=== PATIENT | female | born 1950 | race Caucasian/White ===

== ENCOUNTER 2019-02-09 11:01 | Inpatient (IN) | payer MEDICARE, OTHER ==
[~2019-02-09] VITALS: Ht 170.2 cm; Wt 85.3 kg
[2019-02-09 12:00] LABS: BASOPHILS # (AUTO) 0.1 (0.0-0.1); BASOPHILS % 0.4 % (0.0-1.0); EOSINOPHILS % 0.3 % (0.0-6.0); HEMATOCRIT 43.2 % (34.2-44.1); HEMOGLOBIN 15.2 g/dL (12.0-16.0); LYMPHOCYTES # (AUTO) 2.1 (1.0-3.2); LYMPHOCYTES % 15.3 % (18.0-39.1); MEAN CORPUSCULAR HGB CONC 35.2 g/dL (31-35); MEAN CORPUSCULAR VOLUME 85.2 fL (81-99); MONOCYTES # (AUTO) 0.6 (0.2-0.8); MONOCYTES % 4.4 % (4.4-11.3); NEUTROPHILS # (AUTO) 10.8 (2.1-6.9); NEUTROPHILS % 78.7 % (38.7-80.0); PLATELET COUNT 386 x10e3/uL (140-360); RED BLOOD COUNT 5.07 x10e6/uL (3.6-5.1); RED CELL DISTRIBUTION WIDTH 13.4 % (11.7-14.4)
[2019-02-09 12:01] LABS: ALBUMIN 3.9 g/dL (3.5-5.0); ALBUMIN/GLOBULIN RATIO 0.8 (0.8-2.0); ANION GAP 22.5 mmol/L (8-16); CALCIUM 9.8 mg/dL (8.4-10.2); CREATININE, SERUM 5.08 mg/dL (0.57-1.11); POTASSIUM 4.5 mmol/L (3.5-5.1)
[2019-02-09 12:13] LABS: CLARITY,URINE CLOUDY (CLEAR); COLOR,URINE YELLOW (YELLOW)
[2019-02-09 12:14] LABS: BILIRUBIN,URINE 1+ (NEGATIVE); KETONES,URINE TRACE (NEGATIVE); LEUKOCYTE ESTERASE ,URINE TRACE (NEGATIVE); NITRITE,URINE NEGATIVE (NEGATIVE); PROTEIN,URINE DIPSTICK 1+ (NEGATIVE); URINE UROBILINOGEN 0.2 mg/dL (0.2 - 1)
[2019-02-09 12:28] LABS: BACTERIA,URINE FEW /HPF; RBC,URINE 0-5 /HPF (0-5)
--- NOTE | 2019-02-09 12:59 | Diagnostic Imaging Report ---
EXAM: CT Abdomen and Pelvis WITHOUT contrast INDICATION: Right flank pain, query renal stone. COMPARISON: None. TECHNIQUE: Abdomen and pelvis were scanned utilizing a multidetector helical scanner from the lung base to the pubic symphysis without administration of IV contrast. Absence of intravenous contrast decreases sensitivity for detection of focal lesions and vascular pathology. Coronal and sagittal reformations were obtained. Stone protocol is performed. RADIATION DOSE: Total DLP: 762.3 mGy*cm Estimated effective dose: (DLP x 0.015 x size factor) mSv Dose modulation, iterative reconstruction, and/or weight based adjustment of the mA/kV was utilized to reduce the radiation dose to as low as reasonably achievable. FINDINGS: LINES and TUBES: None. LOWER THORAX: Coronary atherosclerosis. Patchy dependent atelectasis. HEPATOBILIARY: No evidence of mass. Calcified hepatic granuloma at the dome. No biliary ductal dilation. GALLBLADDER: Cholelithiasis without CT evidence of cholecystitis. SPLEEN: No splenomegaly. PANCREAS: Atrophic. No evidence of focal masses or ductal dilatation. ADRENALS: Bilateral adrenal glands appears thickened, consistent with hypertrophy without evidence of discrete nodule. KIDNEYS/URETERS: No hydronephrosis. No cystic or solid mass lesions. No stones. Nonspecific mild bilateral perinephric stranding. GI TRACT: No abnormal distention, wall thickening, or evidence of bowel obstruction. Appendix is normal. PELVIC ORGANS/BLADDER: Bladder is decompressed. LYMPH NODES: No lymphadenopathy. VESSELS: There is moderate atherosclerotic disease in the aorta and major arterial branches. PERITONEUM / RETROPERITONEUM: No free air or fluid. BONES: There is a hemangioma of the L1 vertebral body. There is mild age indeterminate loss of vertebral body height at L1. There is diffuse osteopenia. SOFT TISSUES: Unremarkable. IMPRESSION: No evidence of renal stone. Cholelithiasis without CT evidence of cholecystitis. Mild age indeterminate loss of vertebral body height at L1. Signed by: Dr. Rodger Cardoza MD on 02/09/2019 12:56 PM
--- NOTE | 2019-02-09 13:04 | Diagnostic Imaging Report ---
Examination: Single AP view of the chest. COMPARISON: Same day CT abdomen/pelvis 02/09/2019. Report from chest radiograph 01/27/2014, although the images are not available for review at the time of this dictation. INDICATION: Decreased breath sounds right lower chest. DISCUSSION: The lungs are moderately expanded. There is an asymmetric opacity projecting over the medial aspect of the right lung apex. No evidence of pneumonia or pulmonary edema. The cardiomediastinal silhouette is unremarkable. No acute osseous abnormalities. Posttraumatic deformity of the proximal right humerus is partially seen. There are surgical clips which project over the left lateral hemithorax and axilla. IMPRESSION: No acute radiographic abnormality. Right apical asymmetric opacity likely represents superimposition of the medial clavicle and first anterior costochondral junction. While the images are not available for review, the report from 01/27/2014 also noted opacity at this location. Suggest upright PA and lateral chest radiographs for further evaluation. Signed by: Dr. Rodger Cardoza MD on 02/09/2019 1:01 PM
[2019-02-09] MEDS ORDERED: DEXTROSE 50% SYRINGE 50 ML IV PRN (15:15)
--- OUTSIDE RECORDS SUMMARY | 2019-02-09 15:18 | XMS REPORT ---
[facility] Address Unknown Phone Unavailable Care Team Providers Care [employer] Name Role Phone MANGO Michael BARON Unavailable Unavailable Problems This patient has no known problems. Allergies, Adverse Reactions, Alerts This patient has no known allergies or adverse reactions. Medications This patient has no known medications. Results Test Description Test Time Test Comments Text Results Atomic Results Result Comments CHEST SINGLE (PORTABLE) 2019-02-09 12:56:00 [place] [address] Patient Name: MICKI TODD MR #: [id number] : 1950 Age/Sex: 68/F Req #: [id number] Adm Physician: Ordered by: LENORA MATHEWS MAT MAN Report #: [id number] Location: ER Room/Bed: Procedure: [id number] DX/CHEST SINGLE (PORTABLE) Exam Date: 02/09/19 Exam Time: 1210 REPORT STATUS: Signed Examination: Single AP view of the chest. COM PARISON: Same day CT abdomen/pelvis 02/09/2019. Report from chest radiograph 01/27/2014, although the images are not available for review at the time of this dictation. INDICATION: Decreased breath sounds right lower chest. DISCUSSION: The lungs are moderately expanded. There is an asymmetric opacity projecting over the medial aspect of the right lung apex. No evidence of pneumonia or pulmonary edema. The cardiomediastinal silhouette is unremarkable. No acute osseous abnormalities. Posttraumatic deformity of the proximal right humerus is partially seen. There are surgical clips which project over the left lateral hemithorax and axilla. IMPRESSION: No acute radiographic abnormality. Right apical asymmetric opacity likely represents superimposition of the medial clavicle and first anterior costochondral junction. While the images are not available for review, the report from 01/27/2014 also noted opacity at this location. Suggest upright PA and lateral chest radiographs for further evaluation. Signed by: Dr. Jean Cardoza MD on 02/09/2019 1:01 PM Dictated By: JEAN CARDOZA MD 1301 Transcribed By: SILVIO on 02/09/19 1301 COPY TO: LENOAR MATHEWS MAT MAN CT ABDOMEN/PELVIS WO 2019-02-09 12:46:00 [place] [address] Patient Name: MICKI TODD MR #: [id number] : 1950 Age/Sex: 68/F Req #: [id number] Adm Physician: Ordered by: LENORA MATHEWS MAT MAN Report #: [id number] Location: ER Room/Bed: Procedure: [id number] CT/CT ABDOMEN/PELVIS WO Exam Date: 02/09/19 Exam Time: 1200 REPORT STATUS: Signed EXAM: CT Abdomen and Pelvis WITHOUT contrast I NDICATION: Right flank pain, query renal stone. COMPARISON: None. TECHNIQUE: Abdomen and pelvis were scanned utilizing a multidetector helical scanner from the lung base to the pubic symphysis without administration of IV contrast. Absence of intravenous contrast decreases sensitivity for detection of focal lesions and vascular pathology. Coronal and sagittal reformations were obtained. Stone protocol is performed. RADIATION DOSE: Total DLP: 762.3 mGy*cm Estimated effective dose: (DLP x 0.015 x size factor) mSv Dose modulation, iterative reconstruction, and/or weight based adjustment of the mA/kV was utilized to reduce the radiation dose to as low as reasonably achievable. FINDINGS: LINES and TUBES: None. LOWER THORAX: Coronary atherosclerosis. Patchy dependent atelectasis. HEPATOBILIARY: No evidence of mass. Calcified hepatic granuloma at the dome. No biliary ductal dilation. GALLBLADDER: Cholelithiasis without CT evidence of cholecystitis. SPLEEN: No splenomegaly. PANCREAS: Atrophic. No evidence of focal masses or ductal dilatation. ADRENALS: Bilateral adrenal glands appears thickened, consistent with hypertrophy without evidence of discrete nodule. KIDNEYS/URETERS: No hydronephrosis. No cystic or solid mass lesions. No stones. Nonspecific mild bilateral perinephric stranding. GI TRACT: No abnormal distention, wall thickening, or evidence of bowel obstruction. Appendix is normal. PELVIC ORGANS/BLADDER: Bladder is decompressed. LYMPH NODES: No lymphadenopathy. VESSELS: There is moderate atherosclerotic disease in the aorta and major arterial branches. PERITONEUM / RETROPERITONEUM: No free air or fluid. BONES: There is a hemangioma of the L1 vertebral body. There is mild age indeterminate loss of vertebral body height at L1. There is diffuse osteopenia. SOFT TISSUES: Unremarkable. IMPRESSION: No evidence of renal stone. Cholelithiasis without CT evidence of cholecystitis. Mild age indeterminate loss of vertebral body height at L1. Signed by: Dr. Jean Cardoza MD on 02/09/2019 12:56 PM Dictated By: JEAN CARDOZA MD 1258 Transcribed By: SILVIO on 02/09/19 1251 COPY TO: LENORA MATHEWS NP
[2019-02-09 16:05] VITALS: BP 120/67
[2019-02-09] MEDS: INSULIN REGULAR, HUMAN 100 UNIT/1 ML 3ML VIAL SQ SCH ×2 (16:30→21:12)
--- NOTE | 2019-02-09 16:42 | NUR ---
Recvd patient from ER in stretcher, AAOx2, Assisted her to bed, call light in reach, patient confused intermittently, awaiting to get more informations. Denies any pain, Not in any distress, bed alarm ON, Bed in lowest position, call light in reach
[2019-02-09 17:13] VITALS: BP 120/67
--- NOTE | 2019-02-09 19:00 | NUR ---
received report from day nurse. patient is resting comfortably in bed. bed is in lowest position and call flanagan is within reach.
[2019-02-09 20:00] VITALS: BP 119/61
[2019-02-09 20:27] VITALS: BP 119/61
[2019-02-09] MEDS: SODIUM CHLORIDE 0.9% 1000ML 1,000 ML IV SCH (20:55)
[2019-02-10] VITALS (8 sets, daily range): BP systolic 102–156; BP diastolic 56–79
[2019-02-10] MEDS ORDERED: SONATA PO (02:53)
[2019-02-10] MEDS ORDERED: NAMENDA10 MG PO (02:53)
[2019-02-10] MEDS ORDERED: ALPRAZOLAM0.5 MG PO (02:53)
[2019-02-10] MEDS ORDERED: HYDROCHLOROTHIA25 MG PO (02:53)
[2019-02-10] MEDS ORDERED: GLIPIZIDE5 MG PO (02:53)
[2019-02-10] MEDS ORDERED: PROPRANOLOL HCL10 MG PO (02:53)
[2019-02-10] MEDS ORDERED: TAMOXIFEN CITRA10 MG PO (02:53)
[2019-02-10] MEDS ORDERED: BUPROPION HCL75 MG PO (02:53)
[2019-02-10] MEDS ORDERED: LEVOTHYROXINE50 MCG PO (02:53)
[2019-02-10] MEDS ORDERED: LISINOPRIL10 MG PO (02:53)
[2019-02-10] MEDS ORDERED: ATORVASTATIN CA10 MG PO (02:53)
[2019-02-10] MEDS ORDERED: GLIMEPIRIDE1 MG PO (02:53)
[2019-02-10] MEDS ORDERED: METFORMIN HCL500 MG PO (02:53)
[2019-02-10 05:42] LABS: BASOPHILS # (AUTO) 0.1 (0.0-0.1); BASOPHILS % 0.5 % (0.0-1.0); EOSINOPHILS # (AUTO) 0.1 (0.0-0.4); HEMATOCRIT 39.2 % (34.2-44.1); HEMOGLOBIN 13.8 g/dL (12.0-16.0); LYMPHOCYTES # (AUTO) 1.7 (1.0-3.2); LYMPHOCYTES % 15.5 % (18.0-39.1); MEAN CORPUSCULAR HEMOGLOBIN 29.8 pg (28-32); MEAN CORPUSCULAR HGB CONC 35.2 g/dL (31-35); MEAN CORPUSCULAR VOLUME 84.7 fL (81-99); MONOCYTES # (AUTO) 0.5 (0.2-0.8); MONOCYTES % 4.7 % (4.4-11.3); NEUTROPHILS # (AUTO) 8.3 (2.1-6.9); NEUTROPHILS % 77.4 % (38.7-80.0); PLATELET COUNT 324 x10e3/uL (140-360); RED BLOOD COUNT 4.63 x10e6/uL (3.6-5.1); RED CELL DISTRIBUTION WIDTH 13.4 % (11.7-14.4)
[2019-02-10 06:08] LABS: ANION GAP 16.7 mmol/L (8-16); CALCIUM 9.1 mg/dL (8.4-10.2); CREATININE, SERUM 4.22 mg/dL (0.57-1.11)
[2019-02-10 06:13] LABS: POTASSIUM 2.7 mmol/L (3.5-5.1)
--- NOTE | 2019-02-10 06:32 | NUR ---
received critical lab. patients potassium is 2.7. MD answering service notified. Awaiting call back from MD.
--- NOTE | 2019-02-10 06:52 | NUR ---
report given to day nurse. patient is resting comfortably in bed. bed is in lowest position and call flanagan is within reach
[2019-02-10] MEDS: SODIUM CHLORIDE 0.9% 1000ML 1,000 ML IV SCH ×2 (07:12→17:42)
[2019-02-10] MEDS: INSULIN REGULAR, HUMAN 100 UNIT/1 ML 3ML VIAL SQ SCH ×4 (07:30→20:20)
[2019-02-10] MEDS ORDERED: POTASSIUM CHLORIDE 20 MEQ TAB CR PO STA (09:16)
[2019-02-10] MEDS ORDERED: ACETAMINOPHEN 325 MG TAB PO PRN (09:45)
[2019-02-10] MEDS ORDERED: NORCO 10-325 T1 EACH PO (10:00)
[2019-02-10] MEDS ORDERED: CEFEPIME HCL 1 GM VIAL IV SCH (10:00)
[2019-02-10] MEDS ORDERED: HYDROCODONE/APAP 10MG-325MG TAB PO PRN ×2 (10:00→10:15)
[2019-02-10] MEDS ORDERED: POTASSIUM CHLORIDE 20 MEQ TAB CR PO SCH (10:00)
[2019-02-10] MEDS: POTASSIUM CHLORIDE 20 MEQ TAB CR PO SCH ×2 (10:15→12:10)
[2019-02-10] MEDS: CEFEPIME 1GM/NS 0.9% 50 ML 50 ML IV SCH ×2 (10:40→20:32)
--- NOTE | 2019-02-10 12:20 | NUR ---
SOCIAL WORK INITIAL ASSESSMENT Manager Pathology to bedside to discuss plan of care with patient/family. CM/SW role and care transitions discussed. Anticipated discharge plan discussed along with duration of care. CM/SW discussed patients right to make decisions in care. CM/SW work hours given. Patient lives: IN HOUSE WITH FAMILY IN ONE STORY HOME Admit/Transfer: VIA ED POA/Emergency contact: CANDIDA BELTRE [phone] Current/Previous Home Health: NONE PCP/Follow-up Care: FRANC Current/Previous DME: NONE Other Services: NONE Employment Status: RETIRED Areas of Concerns: NONE Referral Needs: NONE Education Needs: NONE IMM/CONNOR given and signed (if applicable): ON CHART Goal for discharge: RETURN HOME NO NEEDS CM/SW left business card at the bedside with contact information. Name and number was also written on the patients whiteboard. Patient verbalized understanding of discussion. CM will follow-up with ongoing discharge and transition of care needs.
--- NOTE | 2019-02-10 14:11 | NUR ---
Nutrition Intervention Note RD Recommendation(s) for Physician: -Rec adding ADA 1800 to renal diet as medically appropriate -Rec Nepro once a day to promote protein-calorie intake -Obtain stool culture for reported diarrhea; rec probiotics for gut health if diarrhea persisted Plan of Care: RD following, monitoring for tolerance and adequacy, ONS rec Nutrition reason for involvement: Nutrition Risk Trigger MST RD Assessment 02/10 68yo F, who was admitted for acute renal failure. + urine culture. Visited pt in the room. Pt denied any hx of prior HD. Pt reported poor appetite and decreased meal intake x 5 days QUALITY ENG. No weight loss noted as pt reported UBW at 160-165lbs. No physical sign of muscle and fat loss. Pt denied any nausea or vomiting. No chewing or swallowing difficulty noted. LBM 02/10, diarrhea. RD rec Nepro once a day; pt was willing to try. Will continue to monitor and follow. Principal Problems/Diagnoses: acute renal failure, generalized weakness, diabetes PMH: DM GI: LBM 02/10 Skin: No pressure wound noted Labs: (02/10) Na 130 L, K 2.7 L, BUN 78 H, Creatinine 4.22 H, Glucose 177 291 H Meds: IV abx, NaCl Ht: 67in Wt: 188lb BMI: 29.4kg/m2 IBW: 135lb Malnutrition Evaluation (02/10) The patient does not meet criteria for a specified degree of malnutrition at this time. Will re-evaluate at follow-up as appropriate. Energy intake: <50% of estimated energy requirements for >5 days Weight loss: None with UBW ~160 165lbs Fat loss: None Muscle loss: None Supporting Evidence: Fluid accumulation: n/a Functional Status: no changes Nutrition Prescription (Diet Order): renal diet Estimated Nutritional Needs: Calories: 1875 2250kcal (25-30kcal/kg/d) Weight used : usual BW Protein: 75 90g (1-1.2g/kg/d) Weight used: usual BW Diet Adequacy: Not meeting calorie needs, Not meeting protein needs Diet Education Needs Assessment: Diet education indicated, but patient not appropriate for education at this time. Nutrition Care Level: mod Nutrition Diagnosis: Inadequate oral intake related to acute illness as evidenced by poor appetite and intake x 5 days QUALITY ENG. Goal: Patient will meet 75-100% of estimated needs by follow up Progress: N/A Interventions: Mineral/carb modified diet, Commercial beverage Monitoring/Evaluation: Total energy intake, Total protein intake, Modified diet, Liquid supplement, Weight change Signed: Eneida Mitchell, MS, RD, LD
--- NOTE | 2019-02-10 16:44 | NUR ---
assisted her to walk to restroom , not in any distress
[2019-02-10] MEDS ORDERED: GLIMEPIRIDE 2 MG TAB PO SCH (17:00)
[2019-02-10] MEDS ORDERED: NON-FORMULARY MEDICATION (Glimepiride 1 MG) PO SCH (17:00)
[2019-02-10] MEDS ORDERED: METFORMIN HCL 500 MG TAB PO SCH (17:00)
[2019-02-10] MEDS ORDERED: NON-FORMULARY MEDICATION (Bupropion Hcl 75 MG) PO SCH (17:00)
[2019-02-10] MEDS: GLIMEPIRIDE 2 MG TAB PO SCH (17:42)
[2019-02-10] MEDS: METFORMIN HCL 500 MG TAB PO SCH (17:42)
[2019-02-10] MEDS: MEMANTINE 10 MG TAB PO SCH (17:43)
[2019-02-10] MEDS: ALPRAZOLAM 0.5 MG TAB PO SCH (17:43)
[2019-02-10] MEDS: PROPRANOLOL HCL 10 MG TAB PO SCH (17:43)
[2019-02-10] MEDS: BUPROPION HCL 75 MG TAB PO SCH (17:43)
[2019-02-10] MEDS: LISINOPRIL 10 MG TAB PO SCH (17:43)
[2019-02-10] MEDS ORDERED: ATORVASTATIN 10 MG TAB PO SCH (21:00)
[2019-02-10] MEDS ORDERED: SONATA 10 MG PO SCH ×2 (21:00)
[2019-02-11] VITALS: BP 110/55
[2019-02-11 04:00] VITALS: BP 102/57
[2019-02-11] MEDS ORDERED: LEVOTHYROXINE SODIUM 25 MCG TABLET PO SCH (06:00)
[2019-02-11] MEDS ORDERED: LEVOTHYROXINE SODIUM 112 MCG TAB PO SCH (06:00)
[2019-02-11] MEDS: SODIUM CHLORIDE 0.9% 1000ML 1,000 ML IV SCH ×2 (06:01→11:57)
--- NOTE | 2019-02-11 06:45 | NUR ---
report given to day nurse. patient is resting comfortably in bed. bed is in lowest position and call flanagan is within reach.
[2019-02-11] MEDS: INSULIN REGULAR, HUMAN 100 UNIT/1 ML 3ML VIAL SQ SCH ×3 (07:30→16:10)
[2019-02-11] MEDS ORDERED: GLIPIZIDE 5 MG TAB PO SCH (08:00)
[2019-02-11] MEDS: GLIMEPIRIDE 2 MG TAB PO SCH ×2 (08:25→16:38)
[2019-02-11] MEDS: METFORMIN HCL 500 MG TAB PO SCH (08:25)
[2019-02-11 08:36] VITALS: BP 113/56
[2019-02-11 08:37] VITALS: BP 113/56
[2019-02-11] MEDS ORDERED: TAMOXIFEN CITRATE 10 MG TAB PO SCH (09:00)
[2019-02-11] MEDS ORDERED: LEVOTHYROXINE SODIUM 50 MCG TAB PO SCH (09:00)
[2019-02-11] MEDS ORDERED: HYDROCHLOROTHIAZIDE 25 MG TAB PO SCH (09:00)
[2019-02-11] MEDS: MEMANTINE 10 MG TAB PO SCH ×2 (09:11→16:38)
[2019-02-11] MEDS: LISINOPRIL 10 MG TAB PO SCH ×2 (09:12→16:39)
[2019-02-11] MEDS: BUPROPION HCL 75 MG TAB PO SCH ×2 (09:12→16:38)
[2019-02-11] MEDS: ALPRAZOLAM 0.5 MG TAB PO SCH ×2 (09:12→16:38)
[2019-02-11] MEDS: CEFEPIME 1GM/NS 0.9% 50 ML 50 ML IV SCH (10:24)
[2019-02-11 10:50] LABS: ANION GAP 13.1 mmol/L (8-16); CALCIUM 8.6 mg/dL (8.4-10.2); CREATININE, SERUM 2.39 mg/dL (0.57-1.11); POTASSIUM 3.1 mmol/L (3.5-5.1)
--- NOTE | 2019-02-11 11:30 | NUR ---
MET WITH THE PT AT THE BEDSIDE TO DISCUSS LTAC OPTIONS. EXPLAINED THE PURPOSE OF LTAC. PT STATES SHE WANTS TO GO TO [facility]. INFORMED PT [facility] WAS AN LT[facility]. CONSENT WAS SIGNED AND COPY TO CHART AND COPY TO THE PT. [facility] WAS NOTIFIED OF EVAL. Addendum: 02/11/19 at 1358 by Nilda Gandhi CM MOT INITIATED
[2019-02-11] MEDS: PROPRANOLOL HCL 10 MG TAB PO SCH ×2 (12:05→16:39)
[2019-02-11 12:07] VITALS: BP 119/76
[2019-02-11] MEDS ORDERED: POTASSIUM CHLORIDE 10MEQ EA PO ONE (13:45)
[2019-02-11] MEDS ORDERED: PIPERACILLIN/TAZO 2.25 GM 50 ML IV SCH (14:00)
--- NOTE | 2019-02-11 16:33 | NUR ---
LONG-TERM ACUTE CARE DISCHARGE INFORMATION PATIENT HAS BEEN ACCEPTED TO: NAME: [facility] ADDRESS: [address], [place] [address] ACCEPTING EDIPHONE OPERATOR: SHIVAM SEQUEIRA, SCIENTIST/ENGINEER ACCEPTING MD: Thuan VILLALPANDO ROOM: 326 NURSE CALL REPORT TO: THE FOLLOWING DOCUMENTS MUST ACCOMPANY PATIENT FOR TRANSFER: COPIED CHART: BY COIL MAKER MOT INFO RECEIVED FROM: [facility] ORDER/RECONCILED MED LIST: AMILCAR SCHAEFER [id number] DNR: N/A
[2019-02-11 16:39] VITALS: BP 119/70
--- NOTE | 2019-02-11 19:37 | Consultation ---
DATE OF CONSULTATION: Renal Consultation REASON FOR CONSULTATION: Acute kidney injury. HISTORY OF PRESENT ILLNESS: A 68-year-old female with history of dementia and diabetes, was brought to [facility] for flank pain. The patient is a poor historian and she states she has dementia, is not clear why she was brought to the hospital. Reviewing her medical record apparently, the patient developed flank pain that started four days prior to admission. Her sugars were out of control. She developed anorexia and was sent by her primary care physician to the emergency room. The patient was found to have leukocytosis, hyponatremia, acute kidney injury, was admitted, started on fluids and antibiotics for sepsis, and Nephrology consultation was called. The patient denies having history of kidney disease, but per medical record, she has a history of chronic kidney disease. REVIEW OF SYSTEMS: As above. No shortness of breath. No chest pain. No nausea. No vomiting. No diarrhea. Positive anorexia. No swelling. No abdominal pain. No flank pain. All other systems negative. PAST MEDICAL HISTORY: 1. Dementia. 2. Diabetes, type 2. 3. Hypothyroidism. 4. Chronic kidney disease ? 5. History of breast cancer. 6. Osteoporosis. 7. Depression. PAST SURGICAL HISTORY: Right lumpectomy with axillary lymph node dissection. SOCIAL HISTORY: No tobacco. No alcohol. No IV drugs. FAMILY HISTORY: Father with kidney disease. ALLERGIES: NO KNOWN DRUG ALLERGIES. CURRENT MEDICATIONS: See list includes lisinopril, tamoxifen, hydrochlorothiazide, metformin, and cefepime. PHYSICAL EXAMINATION: VITAL SIGNS: Blood pressure 119/76, pulse 74, temperature 98.2, and respiratory rate 16. GENERAL: No apparent distress. HEENT: Oropharynx clear. No scleral icterus. No peripheral edema. NECK: Supple. No elevation in jugular venous pressure. No lymphadenopathy. CHEST: Clear to auscultation anteriorly and bilaterally. CARDIOVASCULAR: Regular rhythm. No murmurs, rubs, or gallops. ABDOMEN: Soft. Positive bowel sounds. No tenderness. No rebound. EXTREMITIES: No edema, clubbing, or cyanosis. SKIN: Warm. LABS: Sodium 132, it was 128 on admission. Potassium 3.1, chloride 105, CO2 17, BUN 54, creatinine 2.39. Estimated GFR 20 mL/minute. Blood sugar 174. White count 10.74, hemoglobin 13.8, and platelets 324. Urine; 1+ protein, 1+ glucose, positive trace leukocyte esterase, no wbcs. Urine culture with Klebsiella pneumonia. CT abdomen and pelvis without contrast shows no evidence of renal stone. Cholelithiasis without CT evidence of cholecystitis. No hydronephrosis. Chest x-ray clear. ASSESSMENT AND PLAN: 1. Acute kidney injury on chronic kidney disease unclear her baseline. Continue with IV fluids. We will discontinue diuretics as well as metformin in the setting of kidney disease. No obstruction on CT scan. We will need to avoid all nephrotoxic medications including NSAIDs. 2. Hyponatremia, improving appropriately. We will discontinue hydrochlorothiazide. 3. Hypertension. Continue lisinopril for now. Hold diuretics as above. 4. Volume depleted on exam. IV fluids as above. 5. Sepsis. Continue antibiotics per Dr. Rosenbaum. We will need to dose all for estimated GFR of 20 mL/minute. MD BRIGETTE Ghosh/LADARIUS /[id number]
[2019-02-12] MEDS ORDERED: CEFEPIME 1GM/NS 0.9% 50 ML 50 ML IV SCH (09:00)
== END 2019-02-11 19:10 | DRG 872 ==
LOC: ER 11:01 → ERHOLD 15:16 → IMCU 15:53 → OBSVTOIN 02-11 09:28
DX: A41.9 Sepsis, unspecified organism (principal); N39.0 Urinary tract infection, site not specified; N17.9 Acute kidney failure, unspecified; E87.1 Hypo-osmolality and hyponatremia; E11.9 Type 2 diabetes mellitus without complications; E87.6 Hypokalemia; F03.90 Unspecified dementia, unspecified severity, without behavioral disturbance, psychotic disturbance, mood disturbance, and anxiety; M81.0 Age-related osteoporosis without current pathological fracture
CPT/HCPCS: 36415; 71045; 74176; 80048; 80053; 81001; 82948; 85025; 87086; 87186; 93005; 96361; 96372; 97139; 99284; G0378; J0692; J2543; J7030

== ENCOUNTER 2020-02-24 14:45 | Observation (INO) | payer MEDICARE ==
[~2020-02-24] VITALS: Ht 170.2 cm; Wt 85.3 kg
[~2020-02-24 14:45] MED LIST: ALPRAZOLAM0.5 MG PO; ATORVASTATIN CA10 MG PO; BUPROPION HCL75 MG PO; GLIMEPIRIDE1 MG PO; GLIPIZIDE5 MG PO; HYDROCHLOROTHIA25 MG PO; LEVOTHYROXINE50 MCG PO; LISINOPRIL10 MG PO; METFORMIN HCL500 MG PO; NAMENDA10 MG PO; NORCO 10-325 T1 EACH PO; PROPRANOLOL HCL10 MG PO; SONATA PO; TAMOXIFEN CITRA10 MG PO
[2020-02-24 15:22] LABS: BASOPHILS % 0.3 % (0.0-1.0); EOSINOPHILS % 0.1 % (0.0-6.0); HEMATOCRIT 40.7 % (34.2-44.1); LYMPHOCYTES # (AUTO) 0.7 (1.0-3.2); LYMPHOCYTES % 4.9 % (18.0-39.1); MEAN CORPUSCULAR HEMOGLOBIN 29.5 pg (28-32); MEAN CORPUSCULAR HGB CONC 34.4 g/dL (31-35); MEAN CORPUSCULAR VOLUME 85.7 fL (81-99); MONOCYTES # (AUTO) 0.2 (0.2-0.8); MONOCYTES % 1.1 % (4.4-11.3); NEUTROPHILS % 93.3 % (38.7-80.0); PLATELET COUNT 451 x10e3/uL (140-360); RED BLOOD COUNT 4.75 x10e6/uL (3.6-5.1); RED CELL DISTRIBUTION WIDTH 13.4 % (11.7-14.4)
[2020-02-24 15:42] LABS: ALBUMIN 4.8 g/dL (3.5-5.0); ALBUMIN/GLOBULIN RATIO 1.2 (0.8-2.0); ANION GAP 20.6 mmol/L (8-16); CREATININE, SERUM 1.15 mg/dL (0.57-1.11); POTASSIUM 3.6 mmol/L (3.5-5.1)
[2020-02-24 15:48] LABS: CREATINE KINASE MB 2.6 ng/mL (0-5.0)
[2020-02-24] MEDS ORDERED: SODIUM CHLORIDE 0.9% 1000ML 1,000 ML IV STA (16:16)
--- NOTE | 2020-02-24 17:12 | Diagnostic Imaging Report ---
EXAMINATION: CHEST SINGLE (PORTABLE) INDICATION: Cough COMPARISON: Chest radiograph 02/09/2019 FINDINGS: LINES/TUBES:None LUNGS:The lungs are well-inflated. No focal consolidation or pulmonary edema. Mild left basilar opacities most likely subsegmental atelectasis. PLEURA:No pleural effusion or pneumothorax. MEDIASTINUM:The cardiomediastinal silhouette appears unchanged in size and shape. Atherosclerotic calcifications of the thoracic aorta. BONES/SOFT TISSUES:No acute osseous injury. Surgical clips at the left axilla. ABDOMEN:No free air. IMPRESSION: Mild left basilar opacities, most likely subsegmental atelectasis. Signed by: Siomara Wren MD on 02/24/2020 5:09 PM
--- NOTE | 2020-02-24 17:41 | NUR ---
spoke with patients gave him an update on patient's status. Husbands name is Tonyafabianraquel Beckett, number [phone].
--- NOTE | 2020-02-24 18:25 | Diagnostic Imaging Report ---
EXAM: CT Abdomen and Pelvis WITH contrast INDICATION: Abdominal pain. Throwing up. Shortness of breath. Cough COMPARISON: 02/09/2019. TECHNIQUE: Abdomen and pelvis were scanned utilizing a multidetector helical scanner from the lung base to the pubic symphysis after administration of IV contrast. Coronal and sagittal reformations were obtained. Routine protocol was performed. Scan was performed when during portal venous phase. IV CONTRAST: 100 mL of Isovue 370 ORAL CONTRAST: None COMPLICATIONS: None RADIATION DOSE: Total DLP: 688 mGy*cm Estimated effective dose: (DLP x 0.015 x size factor) mSv CTDIvol has been reviewed. It is below the limits set by the Radiation Protocol Committee (RPC). Dose modulation, iterative reconstruction, and/or weight based adjustment of the mA/kV was utilized to reduce the radiation dose to as low as reasonably achievable. FINDINGS: LINES and TUBES: None. LOWER THORAX: Unremarkable HEPATOBILIARY: No focal hepatic lesions. No biliary ductal dilation. GALLBLADDER: Numerous gallstones in the lumen of the gallbladder. No ductal dilatation or wall thickening SPLEEN: No splenomegaly. PANCREAS: No focal masses or ductal dilatation. Atrophy of pancreas ADRENALS: Thickened adrenal glands consistent with hypertrophy. KIDNEYS/URETERS: Kidneys enhance symmetrically. No hydronephrosis. No cystic or solid mass lesions. No stones. GI TRACT: No abnormal distention, wall thickening, or evidence of bowel obstruction. Appendix is normal. PELVIC ORGANS/BLADDER: Unremarkable. LYMPH NODES: No lymphadenopathy. VESSELS: Scattered vascular calcification. PERITONEUM / RETROPERITONEUM: No free air or fluid. BONES: Scattered degenerative change. L1 vertebral body hemangioma. Chronic appearing deformity of L1 vertebral body. SOFT TISSUES: Unremarkable. IMPRESSION: Gallstones without CT evidence of cholecystitis. Signed by: Dr. Chacho Mayorga M.D. on 02/24/2020 6:22 PM
[2020-02-24] MEDS ORDERED: SODIUM CHLORIDE 0.9% 50ML 50 ML ONE (18:26)
[2020-02-24] MEDS ORDERED: IOPAMIDOL 370 MG/ML 200 ML INFUS..BTL INJ ONE (18:26)
[2020-02-24 18:37] LABS: BILIRUBIN,URINE NEGATIVE (NEGATIVE); CLARITY,URINE SL CLOUDY (CLEAR); COLOR,URINE YELLOW (YELLOW); KETONES,URINE 1+ (NEGATIVE); LEUKOCYTE ESTERASE ,URINE NEGATIVE (NEGATIVE); NITRITE,URINE NEGATIVE (NEGATIVE); PROTEIN,URINE DIPSTICK >=300 (NEGATIVE); URINE UROBILINOGEN 0.2 mg/dL (0.2 - 1)
[2020-02-24] MEDS ORDERED: AZITHROMYCIN 500MG/NS 250 ML 250 ML IV STA (18:41)
--- NOTE | 2020-02-24 19:02 | NUR ---
report given to Morro GARCIA
[2020-02-24 19:08] LABS: EPITHELIAL CELLS,URINE MODERATE /LPF; TRANSITIONAL EPI CELLS,URINE FEW
[2020-02-24] MEDS: CEFTRIAXONE SOD 1 GM/NS 50 ML 50 ML IV SCH (19:20)
[2020-02-24] MEDS ORDERED: ONDANSETRON HCL INJ 2MG/ML 2ML 2 MG/ML VIAL IV STA (19:30)
[2020-02-24] MEDS ORDERED: ONDANSETRON HCL INJ 2MG/ML 2ML 2 MG/ML VIAL ONE (19:37)
[2020-02-24] MEDS ORDERED: LEVOTHYROXINE112 MCG PO (22:12)
[2020-02-24] MEDS ORDERED: HYDROCHLOROTH12.5 MG PO (22:14)
[2020-02-24] MEDS ORDERED: QUETIAPINE FUMA50 MG PO (22:14)
[2020-02-24] MEDS ORDERED: MAG-OXIDE400 MG PO (22:15)
[2020-02-24] MEDS ORDERED: LISINOPRIL 20 MG TAB PO ONE (22:30)
--- NOTE | 2020-02-24 22:40 | NUR ---
PATIENT WAS BROUGHT FROM ER IN STRETCHER .AAOX3.ASSESSMENT DONE.NO RESP.DISTRESS.NO PAIN VOICED.IV TO R FA PATENT.TELE RHYTHM SHOWING SINUS RHYTHM.ORIENTED TO THE UNIT.BED LOCKED AND IN LOWEST POSITION.PHONE AND CALL LIGHT WITHIN REACH.INSTRUCTED TO CALL FOR ASSISTANCE NEEDED.KEEP MONITOR THE PATIENT.
[2020-02-24 22:45] VITALS: BP 160/82
[2020-02-24] MEDS ORDERED: HYDROCODONE/APAP 10MG-325MG TAB PO PRN (22:45)
[2020-02-24 23:00] VITALS: BP 160/82
[2020-02-25] VITALS (9 sets, daily range): BP systolic 126–172; BP diastolic 75–93
--- NOTE | 2020-02-25 02:30 | NUR ---
Patient is unable to provide home medication list completely.
[2020-02-25] MEDS ORDERED: CLONIDINE HCL 0.1 MG TAB PO ONE (05:45)
[2020-02-25] MEDS ORDERED: CLONIDINE HCL 0.1 MG TAB PO PRN (06:45)
--- NOTE | 2020-02-25 06:49 | NUR ---
Bed side shift report given to oncoming Rn.stable condition.
[2020-02-25 06:59] LABS: BASOPHILS % 0.1 % (0.0-1.0); EOSINOPHILS % 0.1 % (0.0-6.0); HEMATOCRIT 37.1 % (34.2-44.1); HEMOGLOBIN 12.5 g/dL (12.0-16.0); LYMPHOCYTES # (AUTO) 2.4 (1.0-3.2); LYMPHOCYTES % 15.7 % (18.0-39.1); MEAN CORPUSCULAR HEMOGLOBIN 29.3 pg (28-32); MEAN CORPUSCULAR HGB CONC 33.7 g/dL (31-35); MEAN CORPUSCULAR VOLUME 86.9 fL (81-99); MONOCYTES % 6.5 % (4.4-11.3); NEUTROPHILS # (AUTO) 11.6 (2.1-6.9); PLATELET COUNT 347 x10e3/uL (140-360); RED BLOOD COUNT 4.27 x10e6/uL (3.6-5.1); RED CELL DISTRIBUTION WIDTH 13.6 % (11.7-14.4)
[2020-02-25] MEDS ORDERED: AZITHROMYCIN 500MG/NS 250 ML 250 ML IV SCH (07:00)
[2020-02-25 07:22] LABS: ALBUMIN 4.2 g/dL (3.5-5.0); ALBUMIN/GLOBULIN RATIO 1.3 (0.8-2.0); ANION GAP 13.3 mmol/L (8-16); CALCIUM 10.2 mg/dL (8.4-10.2); CREATININE, SERUM 1.04 mg/dL (0.57-1.11); MAGNESIUM 1.4 MG/DL (1.3-2.1); POTASSIUM 3.3 mmol/L (3.5-5.1)
[2020-02-25] MEDS: QUETIAPINE FUMARATE 25 MG TAB PO SCH ×2 (08:28→16:29)
[2020-02-25] MEDS: METFORMIN HCL 500 MG TAB PO SCH ×2 (08:28→16:29)
[2020-02-25] MEDS ORDERED: LEVOTHYROXINE SODIUM 112 MCG TAB PO SCH (09:00)
[2020-02-25] MEDS ORDERED: LISINOPRIL 10 MG TAB PO SCH (09:00)
[2020-02-25] MEDS ORDERED: MEMANTINE 10 MG TAB PO SCH (09:00)
--- NOTE | 2020-02-25 13:13 | NUR ---
Patient lives: IN HOUSE WITH FAMILY IN ONE STORY HOME Admit/Transfer: VIA ED POA/Emergency contact: CANDIDA BELTRE [phone] Current/Previous Home Health: NONE PCP/Follow-up Care: FRANC Current/Previous DME: NONE Other Services: NONE Employment Status: RETIRED Areas of Concerns: NONE Referral Needs: NONE Education Needs: NONE IMM/CONNOR given and signed (if applicable): ON CHART Goal for discharge: RETURN HOME NO NEEDS
[2020-02-25] MEDS ORDERED: SODIUM CHLORIDE 0.9% 250ML 250 ML ONE (19:57)
[2020-02-25] MEDS: CEFTRIAXONE SOD 1 GM/NS 50 ML 50 ML IV SCH (20:00)
--- NOTE | 2020-02-25 20:00 | NUR ---
PATIENT RESTING IN BED AOX3, NO SIGNS OF RESPIRATORY DISTRESS NOTED. IV ANTIBIOTICS ARE RUNNING AT ORDERED RATE AND PATIENT VOICES NO PAIN AT THIS TIME. PATIENT REQUESTING MEDICATION FOR SLEEP AND LET HER KNOW THAT PHYSICIAN WILL BE NOTIFIED PROMPTLY FOR ORDERS. BED IS IN LOWEST POSITION, BOTH SIDE RAILS ARE UP, CALL LIGHT IS WITHIN EASY REACH, WILL CONTINUE TO MONITOR.
[2020-02-25] MEDS ORDERED: ZOLPIDEM TARTRATE 5 MG TAB PO PRN (20:45)
[2020-02-25] MEDS ORDERED: ATORVASTATIN 10 MG TAB PO SCH (21:00)
[2020-02-26 04:20] VITALS: BP 128/80
--- NOTE | 2020-02-26 06:50 | NUR ---
Received patient lying in bed with eyes open. Respiration even and unlabored without SOB. Call light in reach.
[2020-02-26 07:50] VITALS: BP 144/90
--- NOTE | 2020-02-26 08:03 | Discharge Summary ---
DISCHARGE DIAGNOSES: 1. Pneumonia. 2. Urinary tract infection. HISTORY OF PRESENT ILLNESS AND HOSPITAL COURSE: See hospital chart for details. The patient is a lady, who presented with some mild chest pain that was atypical in nature, where she was found to have a lower lobe pneumonia very mild as well as evidence of urinary tract infection. When she was brought in, enzymes were negative. EKG was negative. She was placed on IV antibiotics, where within one day she felt significantly better, but she was monitored for another 24 hours. At the time of discharge, the patient was feeling great, she really wanted to go home. She was ambulating well. She was having no further issues. Her vital signs were stable. She was discharged home with p.o. Levaquin 500 mg a day for 10 days and continuation of her home medicines with followup with her primary care physician in 1 week, and to return to the emergency room if anything then worsens. Please see hospital chart for full details. MD ESHA Frazier/LADARIUS /[id number]
--- NOTE | 2020-02-26 08:43 | NUR ---
20g PIV to right FA discontinued with catheter tip intact, no bleeding noted. Transported via wheelchair to private vehicle with all personal belongings taken.
== END 2020-02-26 08:43 | disposition home or self-care (01) ==
LOC: ER 14:45 → ERHOLD 19:09 → IMCU 22:53
PROVIDERS: ADMIT Internal Medicine; ATTEND Internal Medicine
DX: J15.9 Unspecified bacterial pneumonia (principal); N39.0 Urinary tract infection, site not specified; E11.22 Type 2 diabetes mellitus with diabetic chronic kidney disease; E03.9 Hypothyroidism, unspecified; N18.3 Chronic kidney disease, stage 3 (moderate); E78.5 Hyperlipidemia, unspecified; I12.9 Hypertensive chronic kidney disease with stage 1 through stage 4 chronic kidney disease, or unspecified chronic kidney disease; Z85.3 Personal history of malignant neoplasm of breast; Z82.49 Family history of ischemic heart disease and other diseases of the circulatory system; Z88.5 Allergy status to narcotic agent; Z79.84 Long term (current) use of oral hypoglycemic drugs
CPT/HCPCS: 36415 ×2; 71045; 74177; 80053 ×2; 81001; 82550; 82553; 83735; 84484; 85025 ×2; 87040; 93005; 99284; G0378 ×3; J0456 ×2; J0696 ×2; J2405; J7030; J7050; Q9967